=== PATIENT | female | born 1995 | race African-American/Black ===

== ENCOUNTER 2016-06-09 14:11 | Emergency (ER) | payer MEDICAID, OTHER ==
[~2016-06-09] VITALS: Ht 170.2 cm; Wt 70.3 kg
[~2016-06-09 14:11] MED LIST: PRENATAL VITAMI1 T10 PO
[2016-06-09 14:41] VITALS: BP 121/68
--- NOTE | 2016-06-09 15:30 | NUR ---
PATIENT PRESENTS TO ED WITH FOR EVALUATION OF RECTAL BLEEDING X1 WEEK. . DENIES N/V/D; SKIN IS PINK/WARM/DRY; AAOX4 WITH EVEN AND STEADY GAIT; LUNGS CLEAR BL; HR EVEN AND REGULAR; PT DENIES ANY FEVER, CP, SOB, OR COUGH AT THIS TIME; PATIENT STATES PAIN OF 0/10 AT THIS TIME; VSS; PATIENT POSITIONED FOR COMFORT; HOB ELEVATED; BEDRAILS UP X2; BED DOWN. ER MD MADE AWARE OF PT STATUS.
[2016-06-09 17:36] VITALS: BP 112/75
--- NOTE | 2016-06-09 17:36 | NUR ---
Patient discharged with v/s stable. Written and verbal after care instructions given and explained. Patient verbalized understanding. Ambulatory with steady gait. All questions addressed prior to discharge. Advised to follow up with PMD.
== END 2016-06-09 17:36 | disposition home or self-care (01) ==
LOC: MED 14:11
DX: K62.5 Hemorrhage of anus and rectum (principal)

== ENCOUNTER 2016-09-04 17:54 | Emergency (ER) | payer OTHER ==
[~2016-09-04] VITALS: Ht 170.2 cm; Wt 70.3 kg
[2016-09-04 18:15] VITALS: BP 117/70
--- NOTE | 2016-09-04 19:50 | NUR ---
20 Y/O PRESENTS TO ER W/C/O GENERALIZED BODY ACHES AND R SIDE PAIN X THIS MORNING. PT DENIES ANY OTHER MEDICAL HX OR RECENT INJURIES. NO S/S F DISTRESS NOTED AT THE MOMENT.
[2016-09-04] MEDS ORDERED: cefTRIAXone 250 MG in LIDOCAINE 1% ED 0.9 ML IM ONE (21:30)
[2016-09-04] MEDS ORDERED: AZITHROMYCIN 250 MG TAB PO ONE (21:30)
[2016-09-04 22:15] VITALS: BP 108/67
--- NOTE | 2016-09-04 22:15 | NUR ---
Patient discharged with v/s stable. Written and verbal after care instructions given and explained. Patient alert, oriented and verbalized understanding of instructions. Ambulatory with steady gait. All questions addressed prior to discharge. ID band removed. Patient advised to follow UP TO THIS ER IN 2 DAYS. Rx of FLAGYL, NORCO, AND MOTRIN given. Patient educated on indication of medication including possible reaction and side effects. Opportunity to ask questions provided and answered.
== END 2016-09-04 22:15 | disposition home or self-care (01) ==
LOC: MED 17:54
DX: R10.11 Right upper quadrant pain (principal)
CPT/HCPCS: 36415; 76705; 80053; 81001; 81025; 83690; 84703; 85025; 96372; 99285; J0696; J2001